=== PATIENT | female | born 1945 | race Caucasian/White ===

== ENCOUNTER 2024-02-08 12:06 | Observation (INO) | payer MEDICARE, BC, SELFPAY ==
[2024-02-08] VITALS (12 sets, daily range): BP systolic 114–150; BP diastolic 69–102; PULSE 71–79; RESP 12–16; TEMP 36–36.7; O2SAT 97–100; BMI 34.8
--- NOTE | 2024-02-08 12:45 | CRLHL7_ITS ---
For Patients: As a result of the Century Cures Act, medical imaging exams and procedure reports are released immediately into your electronic medical record. You may view this report before your referring provider. If you have questions, please contact your health care provider. Indication Chest pain Technique One view(s) of the chest Comparison None Findings The cardiomediastinal silhouette is mildly enlarged, accentuated by portable technique. There is no focal airspace consolidation, pleural effusion, or pneumothorax. No displaced fractures. Suture anchor in the right humerus and postsurgical changes of left reverse total shoulder arthroplasty. Impression No acute cardiopulmonary process. Dictated by Serge Hernandez MD @ 02/08/2024 1:09:06 PM (Electronically Signed)
[2024-02-08] MEDS: ASPIRIN 81 MG TAB.CHEW 324 MG PO (12:49)
--- NOTE | 2024-02-08 13:06 | ED_ITS ---
HPI - General Adult General Date Seen: 02/08/24 Chief complaint: Chest Pain Stated complaint: Chest pain episodes Time Seen by Provider: 02/08/24 12:32 Source: patient, RN notes reviewed and old records reviewed Mode of arrival: ambulatory Limitations: no limitations History of Present Illness HPI narrative: Patient is a very pleasant 78-year-old woman with a remote history of pulmonary embolism, not currently anticoagulated, who has been noting some exertional chest tightness over the past few days. In total she has had 4 episodes of central chest tightness associated with a feeling of tight breathing although she denies significant shortness of breath. Symptoms resolve usually during exertion, and last only a couple of minutes at a time. She has not had any symptoms at rest. She denies pleuritic chest pain, fever, cough. She does feel that she is retaining water and legs and hands have been a little more swollen than usual. She has a history of kidney disease and has been on Lasix, she says she was taking 80 mg a day but her railway track plant operator cut her down to 40 mg a day and started her on spironolactone. She says her cardia was also discontinued. She is on a new blood pressure medicine although she does not remember what it is. She was anticoagulated for 6 months after her PE but has not been on any blood thinner since then. She denies any known cardiac history. Related Data Home Medications ?Medication ?Instructions ?Recorded ?Confirmed acetaminophen 650 mg 1,300 mg PO Q8H PRN 02/08/24 02/08/24 tablet,extended release (8 Hour Pain Reliever) allopurinol 100 mg tablet 100 mg PO DAILY 02/08/24 02/08/24 calcium citrate 315 mg-vitamin D3 1 tab PO DAILY 02/08/24 02/08/24 5 mcg (200 unit) tablet (Calcium Citrate + D) cyanocobalamin (vitamin B-12) 1,000 mcg IM Q28D 02/08/24 02/08/24 1,000 mcg/mL injection solution (Dodex) folic acid 1 mg tablet 2 mg PO DAILY 02/08/24 02/08/24 furosemide 40 mg tablet 40 mg PO BID 02/08/24 02/08/24 multivitamin (Daily Multi-Vitamin 1 tab PO DAILY 02/08/24 02/08/24 tablet) pravastatin 40 mg tablet 40 mg PO HS 02/08/24 02/08/24 spironolactone 50 mg tablet 50 mg PO DAILY 02/08/24 02/08/24 vitamin B complex (Complex B-100 1 tab PO DAILY 02/08/24 02/08/24 tablet,extended release) Allergies Allergy/AdvReac Type Severity Reaction Status Date / Time NSAIDS (Non-Steroidal Allergy Unknown Verified 02/08/24 14:55 Anti-Inflamma Review of Systems Status of ROS: Reports: 10 or more systems reviewed and unremarkable except as noted in History and below [facility] Medical History Normal colonoscopy Congestive heart failure with left ventricular diastolic dysfunction, NYHA class 1 ?I50.30 - Unspecified diastolic (congestive) heart failure (ICD-10) History of pulmonary embolism ?Z86.711 - Personal history of pulmonary embolism (ICD-10) Vitamin B12 deficiency ?E53.8 - Deficiency of other specified B group vitamins (ICD-10) Hypercalcemia ?E83.52 - Hypercalcemia (ICD-10) Hyperparathyroidism ?E21.3 - Hyperparathyroidism, unspecified (ICD-10) Coronary artery disease ?I25.10 - Atherosclerotic heart disease of [place] coronary artery without angina pectoris (ICD-10) Chronic kidney disease, stage 3b ?N18.32 - Chronic kidney disease, stage 3b (ICD-10) Hypertensive kidney disease ?I12.9 - Hypertensive chronic kidney disease with stage 1 through stage 4 chronic kidney disease, or unspecified chronic kidney disease (ICD-10) Essential hypertension ?I10 - Essential (primary) hypertension (ICD-10) Hyperlipidemia ?E78.5 - Hyperlipidemia, unspecified (ICD-10) Gout ?M10.9 - Gout, unspecified (ICD-10) Spinal stenosis, lumbar region without neurogenic claudication ?M48.061 - Spinal stenosis, lumbar region without neurogenic claudication (ICD-10) Obstructive sleep apnea ?G47.33 - Obstructive sleep apnea (adult) (pediatric) (ICD-10) Surgical History History of total knee arthroplasty ?Z96.659 - Presence of unspecified artificial knee joint (ICD-10) S/P tubal ligation ?Z98.51 - Tubal ligation status (ICD-10) S/P right rotator cuff repair ?Z98.890 - Other specified postprocedural states (ICD-10) Status post cholecystectomy ?Z90.49 - Acquired absence of other specified parts of digestive tract (ICD- 10) Status post carpal tunnel release ?Z98.890 - Other specified postprocedural states (ICD-10) Status post appendectomy ?Z90.49 - Acquired absence of other specified parts of digestive tract (ICD- 10) History of Shannon-en-Y gastric bypass ?Z98.84 - Bariatric surgery status (ICD-10) Status post total knee replacement, right ?Z96.651 - Presence of right artificial knee joint (ICD-10) Family History Father Coronary artery disease Cancer High blood pressure Mother Coronary artery disease High blood pressure Aunt Breast cancer Maternal Grandfather Stroke Maternal Grandmother Stroke Paternal Grandmother Diabetes Social History What is your current living situation?: I presently have a place to live Problems where you live: no known problems Problems where you live details: N/A In the past 12 months, utilities in danger of being shut off: no In past 12 months, lack of transportation kept you from medical appts, meetings, work, or getting things needed for daily living: no In the past 12 mos, have been you worried that your food would run out before you had money to buy more?: never true In the past 12 mos, the food you bought just didn't last and you didn't have mo pierce to buy more?: never true Smoking Status: Never smoker How often do you have a drink containing alcohol: never AUDIT-C Alcohol total score: 0 Non-prescribed substance use: denies use How often does anyone, including family, friends and others, physically hurt you : never How often does anyone, including family, friends and others, insult or talk down to you: never How often does anyone, including family, friends and others, threaten you with harm: never How often does anyone, including family, friends and others, scream or curse at you: never Exam Narrative: Exam Narrative: Vital signs as noted above. In general, an alert, well-appearing patient. Head: Normocephalic, atraumatic. Eyes: Pupils are equal reactive. Extraocular movements are full. Conjunctivae are normal. ENT: Mucous membranes are moist. Throat is normal. Neck: Supple without lymphadenopathy. Heart: Regular rate and rhythm. Soft systolic murmur heard best at the right sternal border. She says this has been noted previously. Lungs: Clear bilaterally. No increased work of breathing, crackles or wheezes. Abdomen: Soft and nontender. No organomegaly. Extremities: Pulses are intact. She has [id number] edema noted in both lower extremities, no calf tenderness or erythema. Neurologic: Patient is alert and oriented to person and place. Speech is fluent. Face is symmetric. Moves all extremities equally. Affect: Normal. Skin: Warm and dry. Well perfused. Const: Vital Signs, click to edit/add: Vital Signs - 24 hr 02/08/24 12:20 02/08/24 12:20 Temperature 96.8 F L Pulse Rate [Pulse Oximeter] 78 Respiratory Rate 16 Blood Pressure [Le ft Upper Arm] 150/87 H Pulse Oximetry 99 98 Oxygen Delivery Me thod Room Air Documenting provider has reviewed patient's vital signs: yes Course Course ED Course: Patient presents with exertional chest symptoms, no current symptoms. Diagnostic considerations include acute coronary syndrome, angina, pulmonary embolism, congestive heart failure, pneumonia, among others. Initial EKG done on arrival shows normal sinus rhythm, ventricular rate of 78 beats per minute. No acute ST segment changes. T-waves are unremarkable. Initial troponin was 0. D-dimer was elevated at 1.5. Chest x-ray negative by my review, negative by final radiology read. I did add on a CT of the chest to look for pulmonary embolism. However, I think given the exertional nature of her symptoms, age and risk factors, that she should have a stress test. Heart score is 5 putting her at moderate risk and I recommended admission and stress testing tomorrow. She is amenable to that. I did order a 2nd troponin which is pending. Other labs are fairly unremarkable. She had a white count of 5.9, she is very minimally anemic with a hemoglobin of 11.9 and platelets are normal. Metabolic panel aside from a chloride of 116 and a BUN of 36 is unremarkable. Magnesium is a little bit high at 2.8. CRP less than 0.5, BNP of 236. I was unable to find a prior echocardiogram, she says she has had 1 but this may be was through the [facility] system as I do not see it on our EHR. TSH is pending. She had an aspirin on arrival. She has been asymptomatic throughout her time here. Plan for admission to the hospitalist service, [place] tomorrow has been arranged. CT of the chest pending. Vital Signs Vital signs: Initial Vital Signs Temperature 96.8 F L 02/08/24 12:20 Temperature Source Temporal Artery Scan 02/08/24 12:20 Pulse Rate 78 02/08/24 12:20 Pulse Rhythm Regular 02/08/24 12:20 Respiratory Rate 16 02/08/24 12:20 Respiratory Effort Normal, Spontaneous, Non-Labored 02/08/24 12:20 Respiratory Depth Normal 02/08/24 12:20 Respiratory Pattern Normal 02/08/24 12:20 Blood Pressure 150/87 H 02/08/24 12:20 Blood Pressure Mean 108 H 02/08/24 12:20 Blood Pressure Position Sitting 02/08/24 12:20 Pulse Oximetry 99 02/08/24 12:20 Oxygen Delivery Method Room Air 02/08/24 12:20 Vital Signs Temperature 96.8 F L 02/08/24 12:20 Pulse Rate 78 02/08/24 12:20 Respiratory Rate 16 02/08/24 12:20 Blood Pressure 150/87 H 02/08/24 12:20 Pulse Oximetry 99 02/08/24 12:20 Oxygen Delivery Method Room Air 02/08/24 12:20 Temperature 97.6 F 02/09/24 12:48 Pulse Rate 83 02/09/24 13:31 Respiratory Rate 16 02/09/24 13:00 Blood Pressure 114/59 L 02/09/24 12:48 Pulse Oximetry 96 02/09/24 12:48 Oxygen Delivery Method Room Air 02/09/24 12:48 Medications Administered Medications: Generic Name Dose Route Start Last Admin Trade Name Freq PRN Reason Stop Dose Admin Allopurinol 100 mg 02/09/24 09:00 02/09/24 13:01 Allopurinol 100 Mg Tablet PO 100 mg DAILY RADHA Administration Folic Acid 2 mg 02/09/24 09:00 02/09/24 13:01 Folic Acid 1 Mg Tablet PO 2 mg DAILY RADHA Administration Furosemide 40 mg 02/08/24 16:30 02/09/24 13:02 Furosemide 40 Mg Tablet PO 40 mg BID@09,16 RADHA Administration Omeprazole 20 mg 02/09/24 07:00 02/09/24 08:02 Omeprazole [address] PO 20 mg DAILY@0700 RADHA Administration Pravastatin Sodium 40 mg 02/08/24 21:00 02/08/24 20:55 Pravastatin Sodium 20 Mg Tablet PO 40 mg HS RADHA Administration Sodium Chloride 5 ml 02/08/24 16:17 02/09/24 08:55 Sodium Chloride 0.9 % (Flush) 10 Ml Syringe IVF 5 ml .FLUSH PRN Administration Sodium Chloride 5 ml 02/08/24 21:00 02/09/24 09:46 Sodium Chloride 0.9 % (Flush) 10 Ml Syringe IVF Not Given BID RADHA Spironolactone 50 mg 02/09/24 09:00 02/09/24 13:02 Spironolactone 25 Mg Tablet PO 50 mg DAILY RADHA Administration Discontinued Medications Generic Name Dose Route Start Last Admin Trade Name Jesseeq PRN Reason Stop Dose Admin Aspirin 324 mg 02/08/24 12:45 02/08/24 12:49 Aspirin 81 Mg Tab.Chew PO 02/08/24 12:46 324 mg ONCE ONE Administration Pantoprazole Sodium 40 mg 02/08/24 17:00 02/08/24 17:17 Pantoprazole Sodium 40 Mg Inj IVP 02/08/24 17:01 40 mg Q24H RADHA Administration Regadenoson 0.4 mg 02/08/24 14:41 02/09/24 08:55 Regadenoson 0.4 Mg/5 Ml Syringe IVP 02/08/24 14:42 0.4 mg ONCE ONE Administration Medical Decision Making Lab Data Labs: Lab Results 02/08/24 02/08/24 02/08/24 Range/Units 12:46 12:50 14:30 WBC 5.89 (4.50-11.00) K/uL RBC 3.29 L (4.00-5.20) m/uL Hgb 11.9 L (12.0-16.0) gm/dL Hct 37.2 (33.0-51.0) % MCV 113 H (80-100) fL MCH 36 H (26-34) pg MCHC 32 (32-36) gm/dL RDW Coeff of [place] 14.4 (11.5-15.5) % Plt Count 176 (140-440) K/uL Neut % (Auto) 52.6 (42.0-72.0) % Lymph % (Auto) 38.4 (20-44) % [place] % (Auto) 5.9 (0.0-11.0) % Eos % (Auto) 2.5 (0.0-7.0) % Baso % (Auto) 0.3 (0.0-3.0) % Neut # (Auto) 3.09 (1.7-7.0) K/uL Lymph # (Auto) 2.26 (0.90-2.90) K/uL [place] # (Auto) 0.30 (0.00-0.90) K/UL Eos # (Auto) 0.15 (0.00-0.50) K/uL Baso # (Auto) 0.02 (0.00-0.30) K/uL Abs Immat Gran (auto) 0.02 (0.00-0.30) K/uL Imm/Tot Granulo (auto) 0.3 % D-Dimer Quant (PE/DVT) 1.54 H (0.00-0.50) ug/ml Sodium 142 (135-149) mmol/L Potassium 4.9 (3.6-5.1) mmol/L Chloride 116 H (96-114) mmol/L Carbon Dioxide 21 (20-32) mmol/L Anion Gap 5 L (7-15) mEq/L BUN 36 H (7-30) mg/dL Creatinine 1.3 (0.5-1.5) mg/dL Estimated Creat Clear 25.20 Estimated GFR 42 ml/min Glucose 87 (60-115) mg/dL Calcium 8.7 (8.4-10.6) mg/dL Magnesium 2.8 H (1.5-2.6) mg/dL Total Bilirubin 0.7 (0.1-1.5) mg/dL Direct Bilirubin 0.4 (0.0-0.5) mg/dL AST 28 (12-35) U/L ALT 14 (4-35) U/L Alkaline Phosphatase 74 (40-150) U/L C-Reactive Protein < 0.5 L (0.5-1.0) mg/dL NT-Pro-B Natriuret Pep 236 pg/mL Total Protein 7.8 (6.0-8.3) g/dL Albumin 4.3 (3.3-5.0) g/dL TSH < 0.015 L (0.270-4.200) uIU/mL Free T4 0.60 L (0.70-1.85) ng/dL POC Troponin I 0.00 L 0.01 (0.01-0.04) ng/ml Discharge Plan Discharge Patient Disposition: Admitted As Inpatient Condition: Improved Activity Level: Activity as Tolerated Discharge Diet: Heart Healthy (2 gm sodium, low fat)
[2024-02-08 13:37] LABS: Basophils Absolute Auto 0.02 K/uL (0.00-0.30); Basophils Percent Auto 0.3 % (0.0-3.0); Eosinophils Absolute Auto 0.15 K/uL (0.00-0.50); Eosinophils Percent Auto 2.5 % (0.0-7.0); Hematocrit 37.2 % (33.0-51.0); Hemoglobin* 11.9 gm/dL (12.0-16.0); Immature Granulocytes Abs Auto 0.02 K/uL (0.00-0.30); Immature Granulocytes Pct Auto 0.3 %; Lymphocytes Absolute Auto 2.26 K/uL (0.90-2.90); Lymphocytes Percent Auto 38.4 % (20-44); Mean Corpuscular HGB Conc 32 gm/dL (32-36); Mean Corpuscular Hemoglobin 36 pg (26-34); Mean Corpuscular Volume 113 fL (80-100); Monocytes Percent Auto 5.9 % (0.0-11.0); Neutrophils Absolute Auto 3.09 K/uL (1.7-7.0); Neutrophils Percent Auto 52.6 % (42.0-72.0); Platelet Count* 176 K/uL (140-440); RDW Coefficient of Variation % 14.4 % (11.5-15.5); Red Blood Count 3.29 m/uL (4.00-5.20); White Blood Count* 5.89 K/uL (4.50-11.00)
[2024-02-08 13:38] LABS: Slide Review Reflex No
[2024-02-08 13:53] LABS: Albumin* 4.3 g/dL (3.3-5.0); Chloride* 116 mmol/L (96-114); Sodium* 142 mmol/L (135-149)
[2024-02-08 13:54] LABS: Potassium* 4.9 mmol/L (3.6-5.1)
[2024-02-08 13:55] LABS: Creatinine* 1.3 mg/dL (0.5-1.5); D Dimer Quantitative* 1.54 ug/ml (0.00-0.50); Estimated Glomerular Filt Rate 42 ml/min
[2024-02-08 13:56] LABS: Alanine Aminotransferase* 14 U/L (4-35); Alkaline Phosphatase* 74 U/L (40-150); Anion Gap 5 mEq/L (7-15); Aspartate Amino Transferase* 28 U/L (12-35); Bilirubin Direct* 0.4 mg/dL (0.0-0.5); Bilirubin Total* 0.7 mg/dL (0.1-1.5); Blood Urea Nitrogen* 36 mg/dL (7-30); Carbon Dioxide* 21 mmol/L (20-32); Glucose* 87 mg/dL (60-115); Total Protein* 7.8 g/dL (6.0-8.3)
[2024-02-08 13:57] LABS: Calcium* 8.7 mg/dL (8.4-10.6); Magnesium* 2.8 mg/dL (1.5-2.6)
[2024-02-08 14:04] LABS: C Reactive Protein* < 0.5 mg/dL (0.5-1.0); NT Pro B Type NatriureticPept* 236 pg/mL
--- NOTE | 2024-02-08 14:20 | CRLHL7_ITS ---
For Patients: As a result of the Century Cures Act, medical imaging exams and procedure reports are released immediately into your electronic medical record. You may view this report before your referring provider. If you have questions, please contact your health care provider. INDICATION: Chest pain and elevated D-dimer. History of pulmonary embolus. TECHNIQUE: CT chest PE was acquired with 95 cc Isovue 370 intravenous contrast. COMPARISON: None. FINDINGS: Heart and vasculature: Contrast opacification of the pulmonary arterial tree is adequate. No sign of pulmonary embolism. Mild four-chamber cardiac dilatation. Severe coronary atherosclerosis. No pericardial effusion. Tortuous thoracic aorta without evidence of enlargement. Lungs and pleural: No pleural effusion or pneumothorax. Mild mosaic attenuation pattern within the lungs, likely subsegmental atelectasis. Lymph nodes/mediastinum: No mediastinal, hilar, or axillary adenopathy. Chest wall: No masses. Upper abdomen: Status post gastric bypass. Status post cholecystectomy. Bones: Status post left shoulder replacement. Attachment hook within the right proximal humerus. IMPRESSION: 1. No evidence of pulmonary embolus. 2. Mild four-chamber cardiac dilatation with severe coronary atherosclerosis. Please note that all CT scans at this facility use dose modulation, iterative reconstruction, and/or weight-based dosing when appropriate to reduce radiation dose to as low as reasonably achievable. Dictated by Darien Jensen MD @ 02/08/2024 3:18:31 PM (Electronically Signed)
[2024-02-08 14:38] LABS: TSH With Reflex to FT4* < 0.015 uIU/mL (0.270-4.200)
[2024-02-08 14:42] LABS: Troponin, Point-of-Care* 0.01 ng/ml (0.01-0.04)
--- NOTE | 2024-02-08 16:15 | P.IMHP_ITS ---
Hospitalist- H&P: HPI History of Present Illness Date Seen: 02/08/24 Chief complaint: Chest pain episodes Narrative: Pina Damon is a 78 year old woman presents to the [facility] Emergency Department for further assessment of exertional chest tightness which has been worsening over the course of the past 2-3 days. Over the past 2-3 days the patient has had a total of 4 episodes of exertional chest tightness as well as ?tight breathing? with exertion. These have not oc curred at rest. Typically resolve within 1-2 minutes of onset when she decreases her workload. Denies syncope or near syncope, nausea or vomiting, palpitations. Denies fevers, rigors, diaphoresis. Denies cough. Has had a sense that her hands and feet have felt a little more swollen the last couple of days as well. Sees drain tile machine operator regarding chronic kidney disease. Late 2022 her nephrologis t's stopped her losartan and started spironolactone once daily. In early December 2023 her drain tile machine operator. The diltiazem which she had been on for over 20 years and cut the dose of furosemide from 40 mg b.i.d. to 40 mg once daily. Patient takes her medications regularly and does not miss doses. Review of Systems Status of ROS: Reports: 10 or more systems reviewed and unremarkable except as noted in History and below Narrative: Last nuclear medicine myocardial perfusion scan performed on 06/04/2022, demonstrating no evidence of significant myocardial ischemia or infarction. Normal left ventricular ejection fraction measured at 65%. Last transthoracic echocardiogram she had was performed on 11/12/2018, and demonstrated normal LV size, mildly increased wall thickness, normal function with EF of 55-60%. Grade 1 pattern of LV diastolic filling noted. Mild concentric left ventricular hypertrophy noted. Strong family history of coronary artery disease in father who underwent a quadruple coronary artery bypass graft at 50 years of age. Mother had a quadruple coronary artery bypass graft shortly after 80 years of age and then lived until her 90s. No history of tobacco use. Patient designates her children, Geno, low when, and Sanjiv, as her power of data entry supervisor for health should that be required. Patient requested full resuscitation in the event of cardiopulmonary demise but added quickly that she does not want to be forced to live as a vegetable. [facility] Medical History Normal colonoscopy Congestive heart failure with left ventricular diastolic dysfunction, NYHA class 1 ?I50.30 - Unspecified diastolic (congestive) heart failure (ICD-10) History of pulmonary embolism ?Z86.711 - Personal history of pulmonary embolism (ICD-10) Vitamin B12 deficiency ?E53.8 - Deficiency of other specified B group vitamins (ICD-10) Hypercalcemia ?E83.52 - Hypercalcemia (ICD-10) Hyperparathyroidism ?E21.3 - Hyperparathyroidism, unspecified (ICD-10) Coronary artery disease ?I25.10 - Atherosclerotic heart disease of [place] coronary artery without angina pectoris (ICD-10) Chronic kidney disease, stage 3b ?N18.32 - Chronic kidney disease, stage 3b (ICD-10) Hypertensive kidney disease ?I12.9 - Hypertensive chronic kidney disease with stage 1 through stage 4 chronic kidney disease, or unspecified chronic kidney disease (ICD-10) Essential hypertension ?I10 - Essential (primary) hypertension (ICD-10) Hyperlipidemia ?E78.5 - Hyperlipidemia, unspecified (ICD-10) Gout ?M10.9 - Gout, unspecified (ICD-10) Spinal stenosis, lumbar region without neurogenic claudication ?M48.061 - Spinal stenosis, lumbar region without neurogenic claudication (ICD-10) Obstructive sleep apnea ?G47.33 - Obstructive sleep apnea (adult) (pediatric) (ICD-10) Surgical History History of total knee arthroplasty ?Z96.659 - Presence of unspecified artificial knee joint (ICD-10) S/P tubal ligation ?Z98.51 - Tubal ligation status (ICD-10) S/P right rotator cuff repair ?Z98.890 - Other specified postprocedural states (ICD-10) Status post cholecystectomy ?Z90.49 - Acquired absence of other specified parts of digestive tract (ICD- 10) Status post carpal tunnel release ?Z98.890 - Other specified postprocedural states (ICD-10) Status post appendectomy ?Z90.49 - Acquired absence of other specified parts of digestive tract (ICD- 10) History of Shannon-en-Y gastric bypass ?Z98.84 - Bariatric surgery status (ICD-10) Status post total knee replacement, right ?Z96.651 - Presence of right artificial knee joint (ICD-10) Family History Father Coronary artery disease Cancer High blood pressure Mother Coronary artery disease High blood pressure Aunt Breast cancer Maternal Grandfather Stroke Maternal Grandmother Stroke Paternal Grandmother Diabetes Social History Smoking Status: Never smoker How often do you have a drink containing alcohol: never AUDIT-C Alcohol total score: 0 Non-prescribed substance use: denies use Meds Home Medications and Allergies Home Medications ?Medication ?Instructions ?Recorded ?Confirmed ?Type acetaminophen 650 mg 1,300 mg PO Q8H PRN 02/08/24 02/08/24 History tablet,extended release (8 Hour Pain Reliever) allopurinol 100 mg tablet 100 mg PO DAILY 02/08/24 02/08/24 History calcium citrate 315 mg-vitamin D3 1 tab PO DAILY 02/08/24 02/08/24 History 5 mcg (200 unit) tablet (Calcium Citrate + D) cyanocobalamin (vitamin B-12) 1,000 mcg IM Q28D 02/08/24 02/08/24 History 1,000 mcg/mL injection solution (Dodex) folic acid 1 mg tablet 2 mg PO DAILY 02/08/24 02/08/24 History furosemide 40 mg tablet 40 mg PO BID 02/08/24 02/08/24 History multivitamin (Daily Multi-Vitamin 1 tab PO DAILY 02/08/24 02/08/24 History tablet) pravastatin 40 mg tablet 40 mg PO HS 02/08/24 02/08/24 History spironolactone 50 mg tablet 50 mg PO DAILY 02/08/24 02/08/24 History vitamin B complex (Complex B-100 1 tab PO DAILY 02/08/24 02/08/24 History tablet,extended release) Allergies Allergy/AdvReac Type Severity Reaction Status Date / Time NSAIDS (Non-Steroidal Allergy Unknown Verified 02/08/24 14:55 Anti-Inflamma Exam Narrative: Exam Narrative: Examine her in the emergency department. Appears comfortable no acute distress when at rest. Vision and hearing are normal. Alert and oriented x4. Friendly and cooperative. Tympanic membranes normal with normal external auditory canals. Midline nasal septum. Normal nasal mucosa. Dentition in fair repair. Moist buccal mucosa. Pupils equally round and reactive to light and accommodation. Extraocular muscles are intact. Conjugate vision. Midline trachea. Normal thyroid. No JVD or hepatojugular reflux. No carotid bruits. No head neck lymphadenopathy. Heart tones with regular rhythm, normal S1-S2, with very soft systolic murmur and no gallop or rub. PMI not laterally displaced. Lungs are clear to auscultation without wheezing, rhonchi, or rales. Chest wall excursions are full. No CVA tenderness to thumping. Abdomen with active bowel sounds, soft, nontender. No rebound or guarding. Extremities without edema. Palpable pulses upper and lower extremities. No focal motor neurologic deficits. Independent transfer, station, and gait. No tremor, asterixis, or ataxia. Cranial nerves 3-12 grossly normal. Const: Vital Signs, click to edit/add: Vital Signs - 24 hr 02/08/24 12:20 02/08/24 12:20 02/08/24 13:32 Temperature 96.8 F L Pulse Rate 71 Pulse Rate [Pulse Oximeter] 78 Respiratory Rate 16 14 Blood Pressure 132/75 Blood Pressure [Le ft Upper Arm] 150/87 H Pulse Oximetry 99 98 98 Oxygen Delivery Me thod Room Air 02/08/24 14:02 02/08/24 14:32 02/08/24 14:33 Temperature Pulse Rate 75 74 73 Pulse Rate [Pulse Oximeter] Respiratory Rate 16 14 14 Blood Pressure 145/83 H 144/96 H Blood Pressure [Le ft Upper Arm] Pulse Oximetry 99 99 100 Oxygen Delivery Me thod 02/08/24 15:02 02/08/24 15:32 02/08/24 15:55 Temperature 96.8 F L Pulse Rate 73 78 Pulse Rate [Pulse Oximeter] 78 Respiratory Rate 12 12 12 Blood Pressure 131/75 149/102 H Blood Pressure [Le ft Upper Arm] 150/87 H Pulse Oximetry 100 100 [facility]: Result Labs Labs: Short CBC 02/08/24 Range/Units 12:50 WBC 5.89 (4.50-11.00) K/uL Hgb 11.9 L (12.0-16.0) gm/dL Hct 37.2 (33.0-51.0) % Plt Count 176 (140-440) K/uL BMP 02/08/24 12:50 Sodium 142 Potassium 4.9 Chloride 116 H Carbon Dioxide 21 BUN 36 H Creatinine 1.3 Glucose 87 Calcium 8.7 Liver Function 02/08/24 Range/Units 12:50 Total Bilirubin 0.7 (0.1-1.5) mg/dL Direct Bilirubin 0.4 (0.0-0.5) mg/dL AST 28 (12-35) U/L ALT 14 (4-35) U/L Alkaline Phosphatase 74 (40-150) U/L Albumin 4.3 (3.3-5.0) g/dL ECG ECG interpretation date: 02/08/24 Interpretation: Normal sinus rhythm without ischemic or infarct pattern Imaging Chest x-ray: Attestation: I have reviewed the pertinent imaging results. Radiologist's impression: No acute cardiopulmonary process apparent. CT scan - chest: Attestation: I have reviewed the pertinent imaging results. Radiologist's impression: No pulmonary embolism. Mild dilated four-chamber cardiac disease with severe coronary artery calcification. Assessment and Plan Assessment and plan (1) Coronary artery disease with exertional angina: Problem comment: -last nuclear medicine stress test 06/04/2022 with no evidence of significant myocardial ischemia or infarction and normal LV ejection fraction of 65%. -CT scan of chest 02/08/2024 demonstrated no pulmonary embolism but dilated four- chamber cardiac disease with significant coronary artery calcification. -emergency department physician discussed with spark plug assembler who recommended admission for serial troponin I, EKG, telemetry, echo, as well as appropriate stress test. -patient agreeable with Cardiology recommendations and that she is admitted. -Scheduled for nuclear medicine stress test on 02/09/2024. Status: Acute (2) Hypertensive hypertrophic cardiomyopathy: Problem comment: -transthoracic echocardiogram 11/12/2018 demonstrated normal LV size, mildly increased wall thickness, normal global systolic function with EF of 55-60%, grade 1 pattern of LV diastolic filling, mild concentric left ventricular hypertrophy. -CT scan of chest 02/08/2024 demonstrates mild 4 chamber cardiac dilatation. -02/08/2024: Ordered transthoracic echocardiogram. -continue with current medication regimen for now. Status: Acute Plan -reviewed impression with patient -answered patient's questions to her satisfaction -patient agreeable to above stated plans and recommendations. Total Time Spent Total Time Spent: 65 minutes
[2024-02-08] MEDS: PANTOPRAZOLE SODIUM 40 MG INJ IVP (17:17)
[2024-02-08] MEDS: FUROSEMIDE 40 MG TABLET PO (17:18)
[2024-02-08] MEDS: SODIUM CHLORIDE 0.9 % (FLUSH) 10 ML SYRINGE 5 ML IVF ×2 (17:18→20:57)
[2024-02-08] MEDS: PRAVASTATIN SODIUM 20 MG TABLET 40 MG PO (20:55)
[2024-02-09] VITALS (10 sets, daily range): BP systolic 102–123; BP diastolic 59–70; PULSE 57–84; RESP 14–20; TEMP 36.4–36.6; O2SAT 96–100
[2024-02-09 00:41] LABS: Troponin I* < 0.01 ng/mL (0.01-0.04)
[2024-02-09 06:32] LABS: Hemoglobin* 11.6 gm/dL (12.0-16.0)
[2024-02-09 06:49] LABS: Chloride* 114 mmol/L (96-114); Potassium* 4.4 mmol/L (3.6-5.1); Sodium* 140 mmol/L (135-149)
[2024-02-09 06:52] LABS: Creatinine* 1.3 mg/dL (0.5-1.5); Estimated Glomerular Filt Rate 42 ml/min
[2024-02-09 06:53] LABS: Anion Gap 5 mEq/L (7-15); Blood Urea Nitrogen* 38 mg/dL (7-30); Carbon Dioxide* 21 mmol/L (20-32); Glucose* 79 mg/dL (60-115); Magnesium* 2.4 mg/dL (1.5-2.6); Phosphorus* 2.9 mg/dL (2.5-4.5)
[2024-02-09 07:02] LABS: C Reactive Protein* < 0.5 mg/dL (0.5-1.0)
[2024-02-09 07:05] LABS: Troponin I* < 0.01 ng/mL (0.01-0.04)
--- NOTE | 2024-02-09 07:58 | PC.NURSE ---
Patient pleasant, alert and oriented. Ambulated independently in room and chaudhari. Denied any abnormal gait. Denied chest tightness or pain. Teds and SCDs applied. Had lee crackers for snack at 0315.? ? ?
[2024-02-09] MEDS: OMEPRAZOLE 20 MG CAPSULE DR PO (08:02)
[2024-02-09] MEDS: SODIUM CHLORIDE 0.9 % (FLUSH) 10 ML SYRINGE 5 ML IVF ×2 (08:55→20:40)
[2024-02-09] MEDS: REGADENOSON 0.4 MG/5 ML SYRINGE IVP (08:55)
--- NOTE | 2024-02-09 09:01 | PM.IMPN1 ---
Progress Note: A&P Assessment and plan (1) Coronary artery disease with exertional angina: Problem details: Admitted with worsening, recurring exertional angina after emergency department physician discussed with bag bailer who recommended admission for serial troponin I, EKG, telemetry, echo, as well as appropriate stress test. CT scan of chest 02/08/2024 demonstrated no pulmonary embolism but dilated four-chamber cardiac disease with significant coronary artery calcification. Completed nuclear medicine stress test on 02/09/2024 showin. Myocardial perfusion was normal. 2. Left ventricular cavity size was normal (resting EDV 58 ml). 3. Overall left ventricular systolic function was normal without wall motion abnormalities. The post stress LVEF was visually estimated to be 75%. 4. See separate report for EKG intrepretation. 5. Compared to prior study of 06/04/22, there is no significant change. Previous nuclear medicine stress test 06/04/2022 with no evidence of significant myocardial ischemia or infarction and normal LV ejection fraction of 65%. Status: Acute (2) Hypertensive hypertrophic cardiomyopathy: Problem details: Transthoracic echocardiogram on 11/12/2018 demonstrated normal LV size, mildly increased wall thickness, normal global systolic function with EF of 55-60%, grade 1 pattern of LV diastolic filling, mild concentric left ventricular hypertrophy. As above, CT scan of chest 02/08/2024 demonstrates mild 4 chamber cardiac dilatation. Repeat ECHO on 02/09/24 shows: 1. Normal left ventricular size, mildly increased wall thickness, normal global systolic function, calculated EF of 70 %. 2. Grade 1 pattern of LV diastolic filling. 3. The aortic valve is trileaflet and sclerotic, no stenosis and no regurgitation. 4. Compared to the prior study of 09/20/2021, there is no significant change. Status: Acute (3) Essential hypertension: Problem details: Continued on home medications Status: Acute Time Spent With Patient Total time spent: Total time spent caring for the patient today was 45 minutes. This includes time spent for the visit reviewing the chart, time spent during the visit, time spent after the visit and documentation and planning in coordination of care. Subjective Date Seen: 02/09/24 Interval history: Patient is seen sitting up in chair with her daughter at bedside. Has completed her stress test. Feels well. Denies exertional angina during test nor during ambulation up and down the hallways this morning. Denies headache or dizziness. Denies chest pain or shortness of breath. Tolerating orals without nausea. Awaiting echocardiogram this afternoon. Exam Narrative: Exam Narrative: PHYSICAL EXAM General: Pleasant, conversant, NAD HEENT: Normocephalic, atraumatic, sclera white, EOMI, oral mucosa moist Cardiovascular: RRR, S1S2. No pitting edema Pulmonary: CTA bilaterally without rhonchi, rales, expiratory wheezes. No dyspnea on room air Neurological: Alert, answering questions appropriately, cranial nerves intact, no focal findings Extremities: No gross joint deformity or swelling. AROMI. Neurovascularly intact Skin: Warm, dry. Const: Vital Signs, click to edit/add: Vital Signs - 24 hr 02/09/24 12:48 02/09/24 13:00 02/09/24 13:31 Temperature 97.6 F Pulse Rate 83 Pulse Rate [Pulse Oximeter] 81 81 Respiratory Rate 16 16 Blood Pressure [Ri ght Arm] 114/59 L Pulse Oximetry 96 Oxygen Delivery Sd thod Room Air 02/09/24 15:00 02/09/24 15:00 02/09/24 15:00 Temperature 97.5 F L Pulse Rate Pulse Rate [Pulse Oximeter] 70 70 Respiratory Rate 14 16 14 Blood Pressure [Ri ght Arm] 112/67 Pulse Oximetry 96 99 Oxygen Delivery Sd thod Room Air Room Air 02/09/24 17:52 02/09/24 19:00 02/09/24 22:38 Temperature 97.5 F L Pulse Rate 84 Pulse Rate [Pulse Oximeter] 72 Respiratory Rate 20 16 Blood Pressure [Ri ght Arm] 113/70 Pulse Oximetry 97 [facility] 02/09/24 22:38 02/09/24 23:00 02/10/24 02:10 Temperature 97.6 F 97.4 F L Pulse Rate 75 Pulse Rate [Pulse Oximeter] 74 73 Respiratory Rate 16 16 Blood Pressure [Ri ght Arm] 104/67 101/69 Pulse Oximetry 96 99 Oxygen Delivery Sd thod Room Air Room Air 02/10/24 08:43 Temperature 98.8 F Pulse Rate Pulse Rate [Pulse Oximeter] 65 Respiratory Rate 16 Blood Pressure [Ri ght Arm] 108/69 Pulse Oximetry [facility] Labs Labs: Laboratory Results - last 24 hr 02/09/24 06:08 Procalcitonin 0.09
[2024-02-09 10:04] LABS: Procalcitonin* 0.09 ng/mL (<0.50)
--- NOTE | 2024-02-09 11:27 | P.STN_ITS ---
Stress Test Note Date Date of test: 02/09/24 Providers Referring provider: Lisandro Julien Primary care provider: Abel Mott Stress test physician: Emile Freedman Stress Test Note Stress test ordered: Lexiscan Indication for test: Chest pain Stress test medicine: Lexiscan Results discussion: Patient is a very nice 78-year-old female presents here inpatient for evaluation of chest pain, Lexiscan is ordered. After discussion the risks benefits and side effects she would like to proceed. Pretest EKG shows normal sinus rhythm, with a ventricular rate of 59, occasional PAC blood pressure 112/72. Following standard Lexiscan protocol infusion is done over a 5 minute., with a maximum he art rate of 88. Maximum blood pressure was 146 on 80. She was relatively asymptomatic with the infusion. There is no change from the baseline EKG. With no objective evidence of ST wave changes, there is no dysrhythmias, she recovered normal Impression: Negative electrographic portion of Lexiscan Follow up suggested: Await nuclear images, these will be read by nuclear Medicine, clinical correlation with these will be needed, patient is discharge back to medical/surgical inpatient bed status.
[2024-02-09] MEDS: FOLIC ACID 1 MG TABLET 2 MG PO (13:01)
[2024-02-09] MEDS: allopurinoL 100 MG TABLET PO (13:01)
[2024-02-09] MEDS: SPIRONOLACTONE 25 MG TABLET 50 MG PO (13:02)
[2024-02-09] MEDS: FUROSEMIDE 40 MG TABLET PO ×2 (13:02→16:53)
--- NOTE | 2024-02-09 13:36 | PC.NURSE ---
End of shift-- Pleasant and cooperative, alert and oriented patient went to Stress test at approximately 0800 this morning and returned just prior to 1300. VSS and pt is afebrile. SPO2 maintained >90% on RA. She c/o some chronic back pain which she rated 4-5 out of 10 but stated was tolerable for her and declined intervention for it. She denied any chest pain this shift. Telemetry currently shows NSR, but showed a sinus bradyarrhythmia this morning. Trace pitting edema noted in bilateral LE. LS CTA. She denied nausea and ate a 100% of a regular lunch without difficulty. Pt has been up independently in her room and is tolerating it well.
--- NOTE | 2024-02-09 19:29 | PC.NURSE ---
End of Shift: Patient pleasant and cooperative. Patient vitally stable, lungs clear, BS WNL, IV SL and intact. Patient denies pain and independent in room. Patient tolerating regular diet. Patient urinating well, no BM this shift.
[2024-02-09] MEDS: PRAVASTATIN SODIUM 20 MG TABLET 40 MG PO (20:39)
[2024-02-10 02:10] VITALS: BP 101/69; PULSE 73; RESP 16; TEMP 36.3; O2SAT 99
[2024-02-10] MEDS: OMEPRAZOLE 20 MG CAPSULE DR PO (06:05)
--- NOTE | 2024-02-10 06:22 | PC.NURSE ---
Patient pleasant, alert and oriented. Ambulated independently in room and hallway during night. Denied chest discomfort or tightness.?Reported bilateral leg cramping during night that was relieved after ambulating and removing SCDs. No other complaints of discomfort.?
[2024-02-10 08:43] VITALS: BP 108/69; PULSE 65; RESP 16; TEMP 37.1; O2SAT 99
[2024-02-10] MEDS: allopurinoL 100 MG TABLET PO (08:44)
[2024-02-10] MEDS: SPIRONOLACTONE 25 MG TABLET 50 MG PO (08:44)
[2024-02-10] MEDS: FUROSEMIDE 40 MG TABLET PO (08:44)
[2024-02-10] MEDS: FOLIC ACID 1 MG TABLET 2 MG PO (08:44)
[2024-02-10 09:00] VITALS: O2SAT 99
--- NOTE | 2024-02-10 09:02 | P.DS_ITS ---
DS: Providers Provider Date Seen: 02/10/24 Date of admission: 02/08/24 15:58 Primary care physician: Abel Mott MD Admitting Clinician: Jaylin Bustos MD Attending Physician on discharge: Nguyen L[facility] Date [facility] Discharge: 02/10/24 DS: Diagnosis Discharge Diagnosis (1) Coronary artery disease with exertional angina: Status: Acute Problem details: Admitted with worsening, recurring exertional angina after emergency department physician discussed with photographer news who recommended admission for serial troponin I, EKG, telemetry, echo, as well as appropriate stress test. CT scan of chest 02/08/2024 demonstrated no pulmonary embolism but dilated four- chamber cardiac disease with significant coronary artery calcification. Completed nuclear medicine stress test on 02/09/2024 showin. Myocardial perfusion was normal. 2. Left ventricular cavity size was normal (resting EDV 58 ml). 3. Overall left ventricular systolic function was normal without wall motion abnormalities. The post stress LVEF was visually estimated to be 75%. 4. See separate report for EKG intrepretation. 5. Compared to prior study of 06/04/22, there is no significant change. Previous nuclear medicine stress test 06/04/2022 with no evidence of significant myocardial ischemia or infarction and normal LV ejection fraction of 65%. (2) Hypertensive hypertrophic cardiomyopathy: Status: Acute Problem details: Transthoracic echocardiogram on 11/12/2018 demonstrated normal LV size, mildly increased wall thickness, normal global systolic function with EF of 55-60%, grade 1 pattern of LV diastolic filling, mild concentric left ventricular hyp ertrophy. As above, CT scan of chest 02/08/2024 demonstrates mild 4 chamber cardiac dilatation. Repeat ECHO on 02/09/24 shows: 1. Normal left ventricular size, mildly increased wall thickness, normal global systolic function, calculated EF of 70 %. 2. Grade 1 pattern of LV diastolic filling. 3. The aortic valve is trileaflet and sclerotic, no stenosis and no regurgitation. 4. Compared to the prior study of 09/20/2021, there is no significant change. DS: Summary Hospital Course Hospital Course: 78 year old female past medical history significant for hypertension, hyperlipidemia, history of PE, hyperparathyroidism, CKD stage IIIB was admitted to the medical floor for further workup exertional angina. Course of care and details as noted above. Patient underwent nuclear stress test and echocardiogram results as above. Recommend close outpatient follow-up with PCP with referral to Cardiology for further workup, management exertional angina. Remainder of chronic medical comorbidities were monitored and managed with home medications. Status at Discharge Overall status at discharge: patient is back to baseline Time Spent with Patient Time attestation: Total time spent providing and/or coordinating discharge services: Time spent: Greater than 30 minutes Exam Narrative: Exam Narrative: PHYSICAL EXAM General: Pleasant, conversant, NAD Cardiovascular: RRR Pulmonary: No dyspnea Neurological: Alert, answering questions appropriately Skin: Warm, dry. Const: Vital Signs, click to edit/add: Vital Signs - 24 hr 02/08/24 13:32 02/08/24 14:02 02/08/24 14:32 Temperature Pulse Rate 71 75 74 Pulse Rate [Pulse Oximeter] Respiratory Rate 14 16 14 Blood Pressure 132/75 145/83 H 144/96 H Blood Pressure [Le ft Upper Arm] Blood Pressure [Ri ght Arm] Pulse Oximetry 98 99 99 Oxygen Delivery Me thod 02/08/24 14:33 02/08/24 15:02 02/08/24 15:32 Temperature Pulse Rate 73 73 78 Pulse Rate [Pulse Oximeter] Respiratory Rate 14 12 12 Blood Pressure 131/75 149/102 H Blood Pressure [Le ft Upper Arm] Blood Pressure [Ri ght Arm] Pulse Oximetry 100 100 100 Oxygen Delivery Me thod 02/08/24 15:55 02/08/24 16:24 02/08/24 16:30 Temperature 96.8 F L 98 F Pulse Rate 72 Pulse Rate [Pulse Oximeter] 78 73 Respiratory Rate 12 14 Blood Pressure Blood Pressure [Le ft Upper Arm] 150/87 H Blood Pressure [Ri ght Arm] 140/88 H Pulse Oximetry 100 Oxygen Delivery Me thod Room Air 02/08/24 19:00 02/08/24 23:00 02/08/24 23:00 Temperature 98.1 F 97.8 F Pulse Rate Pulse Rate [Pulse Oximeter] 79 79 Respiratory Rate 16 16 Blood Pressure Blood Pressure [Le ft Upper Arm] Blood Pressure [Ri ght Arm] 118/69 114/69 Pulse Oximetry 98 97 [facility] Room [facility] Room Air 02/08/24 23:00 02/09/24 02:50 02/09/24 07:00 Temperature 97.9 F 97.9 F Pulse Rate 71 Pulse Rate [Pulse Oximeter] 67 57 L Respiratory Rate 16 14 Blood Pressure Blood Pressure [Le ft Upper Arm] Blood Pressure [Ri ght Arm] 102/62 123/64 Pulse Oximetry 96 99 Oxygen Delivery Me thod Room Air Room Air 02/09/24 07:00 02/09/24 07:00 02/09/24 12:48 Temperature 97.6 F Pulse Rate 58 L Pulse Rate [Pulse Oximeter] 81 Respiratory Rate 16 Blood Pressure Blood Pressure [Le ft Upper Arm] Blood Pressure [Ri ght Arm] 114/59 L Pulse Oximetry 100 96 Oxygen Delivery Me thod Room Air Room Air DS: Data Data Completed and Pending Labs on day of discharge: Labs from last 24 hours 02/09/24 02/08/24 02/08/24 06:08 23:55 14:30 WBC RBC Hgb 11.6 L Hct MCV MCH MCHC RDW Coeff of Francisco Plt Count Neut % (Auto) Lymph % (Auto) Mckinley % (Auto) Eos % (Auto) Baso % (Auto) Neut # (Auto) Lymph # (Auto) Mckinley # (Auto) Eos # (Auto) Baso # (Auto) Abs Immat Gran (auto) Imm/Tot Granulo (auto) D-Dimer Quant (PE/DVT) Sodium 140 Potassium 4.4 Chloride 114 Carbon Dioxide 21 Anion Gap 5 L BUN 38 H Creatinine 1.3 Estimated Creat Clear 25.20 Estimated GFR 42 Glucose 79 Calcium 8.0 L Phosphorus 2.9 Magnesium 2.4 Total Bilirubin Direct Bilirubin AST ALT Alkaline Phosphatase Troponin I < 0.01 L < 0.01 L C-Reactive Protein < 0.5 L NT-Pro-B Natriuret Pep Total Protein Albumin Procalcitonin 0.09 TSH Free T4 POC Troponin I 0.01 02/08/24 02/08/24 12:50 12:46 WBC 5.89 RBC 3.29 L Hgb 11.9 L Hct 37.2 MCV 113 H MCH 36 H MCHC 32 RDW Coeff of Francisco 14.4 Plt Count 176 Neut % (Auto) 52.6 Lymph % (Auto) 38.4 Mckinley % (Auto) 5.9 Eos % (Auto) 2.5 Baso % (Auto) 0.3 Neut # (Auto) 3.09 Lymph # (Auto) 2.26 Mckinley # (Auto) 0.30 Eos # (Auto) 0.15 Baso # (Auto) 0.02 Abs Immat Gran (auto) 0.02 Imm/Tot Granulo (auto) 0.3 D-Dimer Quant (PE/DVT) 1.54 H Sodium 142 Potassium 4.9 Chloride 116 H Carbon Dioxide 21 Anion Gap 5 L BUN 36 H Creatinine 1.3 Estimated Creat Clear 25.20 Estimated GFR 42 Glucose 87 Calcium 8.7 Phosphorus Magnesium 2.8 H Total Bilirubin 0.7 Direct Bilirubin 0.4 AST 28 ALT 14 Alkaline Phosphatase 74 Troponin I C-Reactive Protein < 0.5 L NT-Pro-B Natriuret Pep 236 Total Protein 7.8 Albumin 4.3 Procalcitonin TSH < 0.015 L Free T4 0.60 L POC Troponin I 0.00 L Imaging Echo: Attestation: I have reviewed the pertinent imaging results. Radiologist's impression: Procedure: 2D, Color Doppler and Spectral Doppler. ? Indication for study: Angina Cardiac Rhythm: Regular.Study quality: Imaging limitations: This study was subject to imaging limitations due to body habitus and a prominent lung artifact. ? Final Impressions: 1. Normal left ventricular size, mildly increased wall thickness, normal global systolic function, calculated EF of 70 %. 2. Grade 1 pattern of LV diastolic filling. 3. The aortic valve is trileaflet and sclerotic, no stenosis and no regurgitation. 4. Compared to the prior study of 09/20/2021, there is no significant change. ? Chamber Sizes and Function Normal left ventricular size, mildly increased wall thickness, normal global systolic function, calculated EF of 70 %. Left atrial size is normal. Left atrial pressure is normal. Right ventricular cavity size is normal, global systolic RV function is normal. RV wall thickness is normal. The right atrium is normal. The pulmonary artery is of normal size and origin. The sinus of Valsalva is normal sized. The ascending aorta is normal sized. ? Valves, RV Pressures and Diastolic Function ? The aortic valve is trileaflet and sclerotic, no stenosis and no regurgitation. The mitral valve is normal in structure, no mitral regurgitation. Spectral Doppler shows Grade 1 pattern of LV diastolic filling. The tricuspid valve is normal in structure. Tricuspid regurgitation is regurgitation is not evident. The pulmonic valve is normal. No pulmonary regurgitation. ? Masses, Effusion, Shunts There is no pericardial effusion. The inferior vena cava is normal sized, respiratory size variation greater than 50%. No left to right shunting was detected by limited color flow Doppler interrogation of the interatrial septum. ? MEASUREMENTS AND CALCULATIONS ? 2-D Measurements and LV Function: ? LVID (d) 4.3 cm Planimetered EF 70 % LVID (s) 2.8 cm LV FS% (2D) 36 % IVS (d) 1.2 cm LVOT diameter 2.6 cm LVPW (d) 1.1 cm HR 74 bpm Ao Sinus 3.3 cm LA Vol index 27 ml/m2 Asc Ao 3.1 cm LA 3.1 cm ? Diastology: Mitral Tissue Doppler E Peak 0.6 m/s e', Septum 0.05 m/s A Peak 1.0 m/s e', Lateral 0.08 m/s E/A 0.6 E/e' Average 9.24 DT 564 msec ? Aortic Valve: ? Vmax 1.6 m/s MICHELLE (V) 2.37 cm?? VTI 0.34 m MICHELLE (I) 2.15 cm?? LVOT V max 0.7 m/s Max PG 10 mmHg LVOT VTI 0.14 m Mean PG 6 mmHg SV 74 ml Dim Index 0.42 SV index 42 ml/m?? CO 5.5 l/min AV Ejection Time 0.31 sec CI 3.1 l/min/m?? AV Flow Rate 235 ml/s ? Mitral Valve: ? MVA 1.3 cm?? MV P 1/2 164 msec MV Mean G 3 mmHg MV VTI 0.25 m ? Tricuspid Valve and estimated PA pressures: TAPSE 2.7 cm NM Cardiac MPI Stress test: Attestation: I have reviewed the pertinent imaging results. Radiologist's impression: MYOCARDIAL PERFUSION IMAGING REPORT REST/STRESS SINGLE ISOTOPE GATED SPECT IMAGING. ? ? Patient Name: MIGUE LOZANO Gender: Selene Height: 60 in Weight: 176 lb Study Date: 02/09/2024 8:15:57 AM BSA: 1.77 m?? : 1945 78 years BMI: 34.37 kg/m?? Ord. Prov.: TERESITA Calloway Monitoring Prov.: Emile Freedman [facility] ? ? Clinical History: Chest pain. Known coronary artery disease. Cardiac Risk Factors: Hypertension, hypercholesterolemia and family history of heart disease. Other Symptomatology: DANTE, CKD and cholecystectomy. Cardiac History: Abnormal EBCT 2010 Ca score 18. Heart failure. Beta aaron/calcium channel aaron/nitrate taken today: No. Caffeine/methylxanthine taken within 12 hrs: No. Chest pain/discomfort at baseline: No. ? ? IMPRESSION 1. Myocardial perfusion was normal. 2. Left ventricular cavity size was normal (resting EDV 58 ml). 3. Overall left ventricular systolic function was normal without wall motion abnormalities. The post stress LVEF was visually estimated to be 75%. 4. See separate report for EKG intrepretation. 5. Compared to prior study of 06/04/22, there is no significant change. ? STRESS MPI PROCEDURE The patient was studied utilizing a same day rest/stress protocol. Myocardial perfusion imaging was performed at rest, 26 minutes following the intravenous injection of 8.60 mCi of 99mTc sestamibi. 30 seconds after the 15 second IV regadenoson injection, the patient was injected via IV with 31.4 mCi of 99mTc sestamibi. Gated post-stress tomographic imaging was performed 33 minutes after stress. After image acquisition was completed, data was reconstructed in short, horizontal long and vertical long axis views and tomographic slices were generated. ? - Pharmacologic stress testing was performed with an IV regadenoson dose of 0.4 mg. - No low level exercise was performed. - Resting heart rate was 60 bpm, peak heart rate was 88 bpm. - Resting blood pressure was 112 mmHg/72 mmHg; peak blood pressure was 146 mmHg/80 mmHg. - Patient did not develop significant symptoms. ? FINDINGS ? ? Imaging - The overall quality of the study was excellent with mild soft tissue attenuation on rest and stress studies. Computerized motion correction was not applied to rest and stress studies. - SPECT perfusion images were normal without evidence of ischemia or infarction. - Post stress gated imaging revealed normal left ventricular size with a visually estimated LVEF of 75%. (Lab normals: LVEF >50%, LV Size <150 ml). - There was normal post-stress myocardial thickening and wall motion. - No right ventricular abnormalities were identified. - There was no evidence of abnormal lung or extracardiac activity. - Risk/extent of ischemia per ACC Noninvasive Risk Stratification Guideline: LOW RISK. Discharge Plan Discharge Disposition: Home, Self-Care Date of Admission: 02/08/24 15:58 Attending Provider on Discharge: Nguyen Lai Primary Care Provider: Abel Mott Condition: Improved Anticipated Discharge Date/Time: 02/10/24 08:59 Discharge Medications: Continued furosemide 40 mg tablet 40 mg PO BID pravastatin 40 mg tablet 40 mg PO HS allopurinol 100 mg tablet 100 mg PO DAILY spironolactone 50 mg tablet 50 mg PO DAILY multivitamin [Daily Multi-Vitamin] Tablet 1 tab PO DAILY Complex B-100 Tablet Extended Release 1 tab PO DAILY calcium citrate-vitamin D3 [Calcium Citrate + D] 315 mg-5 mcg (200 unit) tablet 1 tab PO DAILY acetaminophen [8 Hour Pain Reliever] 650 mg tablet extended release 1,300 mg PO Q8H PRN folic acid 1 mg tablet 2 mg PO DAILY cyanocobalamin (vitamin B-12) [Dodex] 1,000 mcg/mL solution 1,000 mcg IM Q28D Discharge Orders: Discharge Order (Routine); Ordered 02/10/24 Ordered By: Nguyen Lai Patient Education: Angina (GEN), Coronary Artery Disease (GEN), Hypertrophic Cardiomyopathy (GEN) Additional Instructions: Continue your home medications. Avoid strenuous activity, instead stay active with light activity and frequent rests. Recommend follow up with your PCP and Cardiology. Activity Level: Activity as Tolerated, No strenuous activity and Light activity Discharge Diet: Heart Healthy (2 gm sodium, low fat) Follow Up Appointments: [facility] [Provider Group] (5-10 days post hospital follow up exertional angina - Discuss with Dr. Mott at your follow up on 02/16/24.) Abel Mott MD [Primary Care Provider] - 02/16/24 10:05 am ([facility] for follow-up and discuss exertional angina.) Forms: [employer] Info Instructions
--- NOTE | 2024-02-10 13:13 | PC.NURSE ---
Discharge: The patient discharged home with a friend this AM. All discharge instructions were provided and questions were answered. Follow up appointments were scheudled. Iraida HER BSN
== END 2024-02-10 11:11 | disposition home or self-care (01) ==
LOC: ED 15:14 → MEDSURG 16:00
PROVIDERS: Internal Medicine; Admitting Provider Family Medicine; Emergency Provider Emergency Medicine; PCP Surgery; Visit Provider Family Medicine
DX: I25.118 Atherosclerotic heart disease of native coronary artery with other forms of angina pectoris (principal); R07.89 Other chest pain; I42.2 Other hypertrophic cardiomyopathy; I11.9 Hypertensive heart disease without heart failure; I12.9 Hypertensive chronic kidney disease with stage 1 through stage 4 chronic kidney disease, or unspecified chronic kidney disease; I25.84 Coronary atherosclerosis due to calcified coronary lesion; R79.1 Abnormal coagulation profile; E83.41 Hypermagnesemia; N18.32 Chronic kidney disease, stage 3b; E78.5 Hyperlipidemia, unspecified; G47.33 Obstructive sleep apnea (adult) (pediatric); M10.9 Gout, unspecified; R60.0 Localized edema; Z90.49 Acquired absence of other specified parts of digestive tract; Z86.711 Personal history of pulmonary embolism; Z96.659 Presence of unspecified artificial knee joint; Z96.651 Presence of right artificial knee joint; Z98.84 Bariatric surgery status; Z98.51 Tubal ligation status; Z98.890 Other specified postprocedural states
CPT/HCPCS: 36415; 71045; 71275; 78452; 80048; 80076; 83735; 83880; 84100; 84145; 84439; 84443; 84484; 85018; 85025; 85379; 86140; 93005; 93016; 93017; 93306; 94761; 96374; 96375; 99284; 99285; G0378; A9270; A9500; C9113; J2785; Q9967

== ENCOUNTER 2024-12-09 09:58 | Outpatient (CLI) | payer MEDICARE, BC, SELFPAY ==
[2024-12-09 10:35] LABS: Chloride* 110 mmol/L (96-114); Potassium* 4.8 mmol/L (3.6-5.1); Sodium* 138 mmol/L (135-149)
[2024-12-09 10:38] LABS: Anion Gap 10 mEq/L (7-15); Blood Urea Nitrogen* 48 mg/dL (7-30); Carbon Dioxide* 18 mmol/L (20-32); Creatinine* 1.8 mg/dL (0.5-1.5); Estimated Glomerular Filt Rate 28 ml/min
[2024-12-09 10:39] LABS: Calcium* 9.9 mg/dL (8.4-10.6); Glucose* 96 mg/dL (60-115)
== END 2024-12-09 09:59 | disposition home or self-care (01) ==
PROVIDERS: PCP Surgery; Visit Provider Internal Medicine Nephrology
DX: N18.4 Chronic kidney disease, stage 4 (severe) (principal); E78.5 Hyperlipidemia, unspecified
CPT/HCPCS: 36415; 80048

== ENCOUNTER 2025-03-09 13:00 | Outpatient (RCR) | payer MEDICARE, BC, SELFPAY | END 2025-05-15 12:33 | disposition home or self-care (01) | PROVIDERS: PCP Surgery; Visit Provider Surgery | DX: M25.512 Pain in left shoulder (principal); G89.29 Other chronic pain; Z96.612 Presence of left artificial shoulder joint | CPT/HCPCS: 97110; 97161 ==